=== PATIENT | male | born 1980 | race Caucasian/White ===

== ENCOUNTER 2018-12-14 07:39 | Inpatient (IN) | payer OTHER ==
--- NOTE | 2018-12-14 08:15 | PDOC ---
History of Present Illness - General Chief Complaint: Chest Pain Stated Complaint: HIGH BP Time Seen by Provider: 12/14/18 08:13 - History of Present Illness Initial Comments: 37yo M with PMH of HTN, DM, 15 pack-year smoker presenting with chest pain. Patient states he had this pain starting around 2am, described as "heaviness" and rated 7/10. The pain radiates to his left arm. Endorses diaphoresis, but no nausea or vomiting. His father of a heart attack at age 58. The pain worsens when he lays flat, and nothing makes it better. He currently endorses a "burning" on the left side of his chest that travels up and down. Patient has had this pain before, about three or four months ago when he was in [place]. Patient was evaluated by a animal keeper head there with a stress test and was recommended for what sounds like a catheterization, however patient opted to wait to get evaluated when he returned to the [place]. Patient does not have an established primary care physician or animal keeper head here. No hemoptysis, no recent surgical history, no recent immobilization, no hormone use, no history of DVT or PE. He also notes a high blood pressure reading at home that was "110/ 160." Denies fevers, chills, or abdominal pain. PCP: none (though his PCP is lasted as Dr. Oren Jhaveri, patient does not recognize the name and has not seen a doctor in the [place] in years) Cardio: none Past History - Past Medical History Allergies/Adverse Reactions: Allergies Allergy/AdvReac Type Severity Reaction Status Date / Time No Known Allergies Allergy Verified 12/14/18 07:43 Home Medications: Ambulatory Orders Nebivolol HCl [Bystolic] 10 mg PO DAILY 12/14/18 Pitavastatin Calcium [Livalo] 2 mg PO DAILY 12/14/18 COPD: No Diabetes: Yes HTN: Yes - Surgical History GI Surgery: No - Immunization History Immunization Up to Date: No - Suicide/Smoking/Psychosocial Hx Smoking History: Current every day smoker Have you smoked in the past 12 months: Yes Number of Cigarettes Smoked Daily: 12 Information on smoking cessation initiated: No Hx Alcohol Use: No Drug/Substance Use Hx: No Review of Systems - Review of Systems Comments:: Constitutional: no fever, +diaphoresis HEENT: no throat pain, no dysphagia Cardiovascular: +chest pain, no palpitations Respiratory: no cough, no shortness of breath Gastrointestinal: no abdominal pain, no nausea Genitourinary: no dysuria, no frequency Musculoskeletal: no myalgia, no arthralgia Skin: no rash, no itching Neurologic: no headache, +weakness *Physical Exam - Vital Signs Last Vital Signs Temp Pulse Resp BP Pulse Ox 97.8 F 74 18 134/89 98 12/14/18 07:41 12/14/18 07:41 12/14/18 07:41 12/14/18 07:41 12/14/18 07:41 - Physical Exam Comments: General: Awake, alert, and fully oriented, in no acute distress Head: No signs of trauma Eyes: EOMI, sclera anicteric ENT: Moist mucus membranes Neck: Normal ROM, supple Lungs: Lungs clear, Normal breath sounds Cardio: Regular rhythm, S1 and S2 present Abdomen: Soft, nontender. No guarding, no rebound, no masses Extremities: Normal range of motion, Distal pulses present SKIN: Warm, Dry, normal turgor Neurologic: Cranial nerves II through XII grossly intact. Normal speech ED Treatment Course - LABORATORY CBC & Chemistry Diagram: 12/14/18 08:55 12/14/18 16:59 Medical Decision Making - Medical Decision Making 37yo M with PMH of HTN, DM presenting with chest pain. DDX including but not limited to ACS, Aortic dissection, Pericarditis, PE, PNA, MSK Cardiac workup 324mg ASA EKG: rate 66, QTc 408, NSR, flattened t/ twi in leads II, III, avF (no prior ekgs in chart) 12/14/18 08:46 HEART score is at least 4 given risk factors (smoker, HTN, DM, family history), abnormal EKG, and history (moderately suspicious) CXR without acute pathology, my impression Awaiting Tpn and other labs Likely Telemetry obs admission for r/o ACS 12/14/18 09:26 CBC WBC 7.9 K/mm3 (4.0-10.0) 12/14/18 08:55 RBC 4.92 M/mm3 (4.00-5.60) 12/14/18 08:55 Hgb 15.3 GM/dL (11.7-16.9) 12/14/18 08:55 Hct 44.2 % (35.4-49) 12/14/18 08:55 MCV 89.9 fl (80-96) 12/14/18 08:55 MCH 31.0 pg (25.7-33.7) 12/14/18 08:55 MCHC 34.5 g/dl (32.0-35.9) 12/14/18 08:55 RDW 13.3 % (11.9-15.9) 12/14/18 08:55 Plt Count 197 K/MM3 (134-434) 12/14/18 08:55 MPV 8.2 fl (7.5-11.1) 12/14/18 08:55 Absolute Neuts (auto) 3.6 K/mm3 (1.5-8.0) 12/14/18 08:55 Neutrophils % 45.7 % (42.8-82.8) 12/14/18 08:55 Lymphocytes % 42.1 % (8-40) H 12/14/18 08:55 Monocytes % 8.4 % (3.8-10.2) 12/14/18 08:55 Eosinophils % 3.3 % (0-4.5) 12/14/18 08:55 Basophils % 0.5 % (0-2.0) 12/14/18 08:55 Nucleated RBC % 0 % (0-0) 12/14/18 08:55 No anemia or leukocytosis 12/14/18 09:41 CMP Sodium 135 mmol/L (136-145) L 12/14/18 08:55 Potassium 4.4 mmol/L (3.5-5.1) 12/14/18 08:55 Chloride 104 mmol/L (98-107) 12/14/18 08:55 Carbon Dioxide 25 mmol/L (21-32) 12/14/18 08:55 Anion Gap 5 MMOL/L (8-16) L 12/14/18 08:55 BUN 13 mg/dL (7-18) 12/14/18 08:55 Creatinine 0.7 mg/dL (0.55-1.3) 12/14/18 08:55 Creat Clearance w eGFR 126.90 (>60) 12/14/18 08:55 Random Glucose 169 mg/dL (74-106) H 12/14/18 08:55 Calcium 8.9 mg/dL (8.5-10.1) 12/14/18 08:55 Total Bilirubin 0.4 mg/dL (0.2-1) 12/14/18 08:55 AST 18 U/L (15-37) 12/14/18 08:55 ALT 37 U/L (13-61) 12/14/18 08:55 Alkaline Phosphatase 77 U/L (45-117) 12/14/18 08:55 Creatine Kinase 70 U/L (26-308) 12/14/18 08:55 Troponin I < 0.02 ng/ml (0.00-0.05) 12/14/18 08:55 Total Protein 7.9 g/dl (6.4-8.2) 12/14/18 08:55 Albumin 3.9 g/dl (3.4-5.0) 12/14/18 08:55 Tpn <0.02 undetectable Electrolytes unremarkable Patient reports some alleviation of chest pain after receiving sublingual nitro , now rated 3/10 Hospitalist team paged 12/14/18 10:57 Dr. Freitas requested consultation with cardiology to determine whether patient would be better served at a center with a cardiac cath. Dr. Vincent discussed case with cardio who recommended tele observation as patient has no cardiac stress testing/ECHO in this country. Dr. Freitas made aware Admission order placed *DC/Admit/Observation/Transfer Diagnosis at time of Disposition: Chest pain Qualifiers: Chest pain type: unspecified Qualified Code(s): R07.9 - Chest pain, unspecified - Discharge Dispostion Condition at time of disposition: Guarded Decision to Admit order: Yes - Referrals - Patient Instructions - Post Discharge Activity
[2018-12-14] MEDS ORDERED: ASPIRIN 81 MG CHEWABLE TABLETS PO ONE (08:42)
[2018-12-14] MEDS ORDERED: ASPIRIN 325 MG TABLET ONE (08:45)
[2018-12-14] MEDS ORDERED: NITROGLYCERIN SUBLINGUAL 1/200 0.3 MG BTL SL ONE (09:14)
[2018-12-14 09:19] LABS: BASO % 0.5 % (0-2.0); EOS % 3.3 % (0-4.5); HEMATOCRIT 44.2 % (35.4-49); HEMOGLOBIN 15.3 GM/dL (11.7-16.9); LYMPH % 42.1 % (8-40); MCHC 34.5 g/dl (32.0-35.9); MEAN CELL VOLUME 89.9 fl (80-96); MEAN PLT VOLUME 8.2 fl (7.5-11.1); MONO % 8.4 % (3.8-10.2); NEUT % 45.7 % (42.8-82.8); PLATELET COUNT 197 K/MM3 (134-434); RBC 4.92 M/mm3 (4.00-5.60); RDW 13.3 % (11.9-15.9); WHITE BLOOD COUNT 7.9 K/mm3 (4.0-10.0)
[2018-12-14] MEDS ORDERED: NITROGLYCERIN SUBLINGUAL 1/150 0.4 MG TAB ONE (09:23)
[2018-12-14 09:33] LABS: INR 1.04 (0.83-1.09); PROTHROMBIN TIME (PATIENT) 12.3 SEC (9.7-13.0)
[2018-12-14 09:36] LABS: ACTIVATED PTT 31.7 SECONDS (25.2-36.5)
--- NOTE | 2018-12-14 10:16 | PDOC ---
Attending Attestation - Resident Resident Name: Belen Martinez - ED Attending Attestation I have performed the following: I have examined & evaluated the patient, The case was reviewed & discussed with the resident, I agree w/resident's findings & plan - HPI HPI: 12/14/18 10:11 37-year-old male with history of hypertension, high cholesterol, smoking history , reportedly known CAD on stress test performed in his home country about 9 months ago (referred for catheterization at that time but wanted to follow-up in the [place]) presents now for first episode of chest pain since that stress test 9 months ago. Patient was resting at home last night, developed left chest/shoulder discomfort with nausea and diaphoresis, mild throughout the night and awoke this morning with increased pain today presents for evaluation. At baseline, patient has no exercise limitations and denies any exertional chest pain or dyspnea. - Physicial Exam PE: 12/14/18 10:12 Vital signs are within normal limits Patient seated comfortably in stretcher, diaphoretic upon arrival, EKG showed no acute ischemia patient was given nitroglycerin with improved symptoms Heart is regular without murmur, lungs are clear No extremity edema or calf tenderness - Medical Decision Making 12/14/18 10:13 37-year-old male with hypertension, diabetes, smoking history, positive family history and reportedly known CAD from stress test last year presents now with chest pain concerning for an unstable angina. Labs, EKG, chest x-ray asa, ntg tele admit 12/14/18 11:45 labs wnl case d/w Dr. Jain of cardiology, agrees with tele admit Accepted for inpt tele by Dr. Ramos Heart Score/ECG Review - History History: Highly suspicious - Electrocardiogram EKG: Non specific repolarization disturbance - Age Age: </= 45 - Risk Factors Risk Factors Heart Score: Yes Hx Hypertension, Yes Hx Diabetes, Yes Smoking History, Yes Positive family hx of cardiac disease Based on the list above the patient has:: >/=3 risk factors or Hx atherosclerotic disease - Troponin Troponin: </= normal limit - Score Heart Score - Total: 5 #1 ECG reviewed & interpreted by me at: 07:41 General ECG Interpretation: Sinus Rhythm, Normal Rate (66), Normal Intervals ( qtc 408), No acute ischemic changes (inf flat T, septal Q V1V2)
[2018-12-14 10:28] LABS: ALBUMIN 3.9 g/dl (3.4-5.0); ALK PHOS 77 U/L (45-117); ANION GAP 5 MMOL/L (8-16); BILIRUBIN,TOTAL 0.4 mg/dL (0.2-1); BLOOD UREA NITROGEN 13 mg/dL (7-18); CALCIUM 8.9 mg/dL (8.5-10.1); CHLORIDE 104 mmol/L (98-107); CO2 25 mmol/L (21-32); CREATININE 0.7 mg/dL (0.55-1.3); GLUCOSE,RANDOM 169 mg/dL (74-106); POTASSIUM 4.4 mmol/L (3.5-5.1); SGOT/AST 18 U/L (15-37); SGPT/ALT 37 U/L (13-61); SODIUM 135 mmol/L (136-145); TOT PROT 7.9 g/dl (6.4-8.2)
--- NOTE | 2018-12-14 12:26 | EKG ---
Test Reason : Blood Pressure : / mmHG Vent. Rate : 066 BPM Atrial Rate : 066 BPM P-R Int : 174 ms QRS Dur : 092 ms QT Int : 390 ms P-R-T Axes : -08 001 -04 degrees QTc Int : 408 ms NORMAL SINUS RHYTHM SEPTAL INFARCT , AGE UNDETERMINED ABNORMAL ECG Confirmed by MD NAHUN, CARMEN ([id number]) on 12/14/2018 12:25:55 PM Referred By: Confirmed By:CARMEN GARNICA MD
--- NOTE | 2018-12-14 12:46 | HP ---
CHIEF COMPLAINT: chest pain PCP: None HISTORY OF PRESENT ILLNESS: The patient is a 37 year old male with a PMH of DMII, hypertension who presented complaining of chest pain that started last night around 2 AM. The pain started suddenly, awoke him from sleep, 10/10, located on left side of the chest, radiated to the neck and associated with numbness of left upper extremity , pressure like. The patient states that the pain lasted for few hours. The patient had relieve of his symptoms after he was given NTG in emergency room. The patient had positive stress test 9 months ago in [place] but decided not to undergo further treatment at that time. The patient reports weakness for the past 2-3 weeks that got worse in the past 3 days. He denies palpitations, SOB, dizziness. He is compliant with his medications but doesn't have PCP in [place]. ER course was notable for: (1)EKG (2)troponin neg (3)Cardiology consultation PAST MEDICAL HISTORY: as above PAST SURGICAL HISTORY: none Social History: Smoking:yes, current smoker, 1 pack a day for 15 years Alcohol:occasionally Drugs: no Family History: Father due to PA at age 59 many family members on father's side with heart disease Mother: DM Allergies No Known Allergies Allergy (Verified 12/14/18 07:43) HOME MEDICATIONS: Home Medications Medication Instructions Recorded Nebivolol HCl [Bystolic] 10 mg PO DAILY 12/14/18 Pitavastatin Calcium [Livalo] 2 mg PO DAILY 12/14/18 REVIEW OF SYSTEMS CONSTITUTIONAL: Absent: fever, chills, diaphoresis, generalized weakness, malaise, loss of appetite, weight change HEENT: Absent: rhinorrhea, nasal congestion, throat pain, throat swelling, difficulty swallowing, visual changes CARDIOVASCULAR: chest pain, Absent: syncope, palpitations, irregular heart rate, lightheadedness, peripheral edema RESPIRATORY: Absent: cough, shortness of breath, dyspnea with exertion, orthopnea, wheezing, stridor, hemoptysis GASTROINTESTINAL: Absent: abdominal pain, nausea, vomiting, diarrhea, constipation, melena, hematochezia GENITOURINARY: Absent: dysuria, frequency, urgency, hesitancy, hematuria, flank pain, genital pain MUSCULOSKELETAL: neck pain Absent: myalgia, arthralgia, joint swelling, back pain HEMATOLOGIC/IMMUNOLOGIC: Absent: easy bleeding, easy bruising ENDOCRINE: Absent: unexplained weight gain, unexplained weight loss, heat intolerance, cold intolerance NEUROLOGIC: Absent: headache, focal weakness or paresthesias, dizziness, unsteady gait, seizure PSYCHIATRIC: Absent: anxiety, depression PHYSICAL EXAMINATION Vital Signs - 24 hr 12/14/18 12/14/18 12/14/18 07:41 08:15 09:24 Temperature 97.8 F Pulse Rate 74 Pulse Rate [ 65 Apical] Respiratory 18 16 Rate Blood Pressure 134/89 Blood Pressure 135/89 [Left Arm] O2 Sat by Pulse 98 99 99 Oximetry (%) 12/14/18 09:52 Temperature Pulse Rate Pulse Rate [ 71 Apical] Respiratory 16 Rate Blood Pressure Blood Pressure 111/79 [Left Arm] O2 Sat by Pulse 71 L Oximetry (%) GENERAL: Awake, alert, and fully oriented, in no acute distress. HEAD: Normal with no signs of trauma. EYES: Extraocular movements intact, sclera anicteric, conjunctiva clear. EARS, NOSE, THROAT: Oropharynx clear without exudates. Moist mucous membranes. NECK: Normal range of motion, supple without lymphadenopathy, JVD, or masses. LUNGS: Breath sounds equal, clear to auscultation bilaterally. No wheezes, and no crackles. No accessory muscle use. HEART: Regular rate and rhythm, normal S1 and S2 without murmur, rub or gallop. ABDOMEN: Obese, soft, nontender, normoactive bowel sounds, no guarding, no rebound, no masses. MUSCULOSKELETAL: Normal range of motion at all joints. No bony deformities or tenderness. UPPER EXTREMITIES: No peripheral edema. LOWER EXTREMITIES: 2+ pulses, no peripheral edema. NEUROLOGICAL: Non focal. Normal speech. Normal gait. PSYCHIATRIC: Cooperative. Good eye contact. Appropriate mood and affect. SKIN: Warm, dry, normal turgor, no rashes or lesions. Laboratory Results - last 24 hr 12/14/18 12/14/18 12/14/18 08:55 08:55 08:55 WBC 7.9 RBC 4.92 Hgb 15.3 Hct 44.2 MCV 89.9 MCH 31.0 MCHC 34.5 RDW 13.3 Plt Count 197 MPV 8.2 Absolute Neuts (auto) 3.6 Neutrophils % 45.7 Lymphocytes % 42.1 H Monocytes % 8.4 Eosinophils % 3.3 Basophils % 0.5 Nucleated RBC % 0 PT with INR 12.30 INR 1.04 PTT (Actin FS) 31.7 Sodium 135 L Potassium 4.4 Chloride 104 Carbon Dioxide 25 Anion Gap 5 L BUN 13 Creatinine 0.7 Creat Clearance w eGFR 126.90 Random Glucose 169 H Calcium 8.9 Total Bilirubin 0.4 AST 18 ALT 37 Alkaline Phosphatase 77 Creatine Kinase 70 Troponin I < 0.02 Total Protein 7.9 Albumin 3.9 ASSESSMENT/PLAN: The patient is a 37 year old male with a PMH of DMII, hypertension who presented complaining of chest pain, admitted to r/o ACS. r/o ACS: -the patient presented with typical chest pain, HEART score 4, -no acute EKG changes, NSR, no magdalene/std and normal troponin -consulted Cardiology, will follow up recommendations -f/u troponin at 15 and 21:00, f/u EKG this afternoon -cont Bystolic and Lipitor, no AC recommended by Cardiology -NTG sl as needed -f/u ECHO -tomorrow for stress test Neck pain: -the patient is still complaining of neck pain and numbness in upper extremities -will f/u x ray DM: -ISS ACHS -BGM ACS -Hg A1c ordered -hold home medication HTN: -cont Bystolic PO -monitor Nicotine dependance: -nicotine gum, counseling F/E/N: no/no changes/MPO Disposition: telemetry monitoring, stress test tomorrow Problem List - Problem (1) Chest pain Code(s): R07.9 - CHEST PAIN, UNSPECIFIED (2) Hypertension Code(s): I10 - ESSENTIAL (PRIMARY) HYPERTENSION (3) Diabetes Code(s): E11.9 - TYPE 2 DIABETES MELLITUS WITHOUT COMPLICATIONS Visit type - Emergency Visit Emergency Visit: Yes ED Registration Date: 12/14/18 Care time: The patient presented to the Emergency Department on the above date and was hospitalized for further evaluation of their emergent condition. - New Patient This patient is new to me today: Yes Date on this admission: 12/14/18 - Critical Care Critical Care patient: No
[2018-12-14 14:42] LABS: N-TERMINAL BNP 19.4 pg/ml (5-125)
--- NOTE | 2018-12-14 15:07 | CON.CARD ---
Cardiology Consult (text) - Consultation Consultation Note: cc: cp hpi: 37 m hx htn, hld, dm, smoking, here with cp. Woke up early this morning and had left chest tightness with left arm numbness. Mild sob as well. No dizzy, loc, pnd, orthopnea, le edema. Came to ER and got sl nitro and sxs resolved an hour later. Feels well now. Had similar episode [place] and reports having abnl stress test there but chose not to have cath then. pmh: per hpi psh: no surgery social: +tob fam: dad mi 58 ros: per hpi; all others normal meds: Home Medications Medication Instructions Recorded Nebivolol HCl [Bystolic] 10 mg PO DAILY 12/14/18 Pitavastatin Calcium [Livalo] 2 mg PO DAILY 12/14/18 pe: Vital Signs (72 hours) 12/14/18 12/14/18 12/14/18 07:41 08:15 09:24 Temperature 97.8 F Pulse Rate 74 Pulse Rate [ 65 Apical] Respiratory 18 16 Rate Blood Pressure 134/89 Blood Pressure 135/89 [Left Arm] O2 Sat by Pulse 98 99 99 Oximetry (%) 12/14/18 09:52 Temperature Pulse Rate Pulse Rate [ 71 Apical] Respiratory 16 Rate Blood Pressure Blood Pressure 111/79 [Left Arm] O2 Sat by Pulse 71 L Oximetry (%) nad no jvd rrr s1s2 no mrg cta bl nl eff aao3 no le e/c/c abd nt nd pos bs no jaundice diaphoresis pos dp pt no carotid bruits Laboratory Last Values WBC 7.9 K/mm3 (4.0-10.0) 12/14/18 08:55 RBC 4.92 M/mm3 (4.00-5.60) 12/14/18 08:55 Hgb 15.3 GM/dL (11.7-16.9) 12/14/18 08:55 Hct 44.2 % (35.4-49) 12/14/18 08:55 MCV 89.9 fl (80-96) 12/14/18 08:55 MCH 31.0 pg (25.7-33.7) 12/14/18 08:55 MCHC 34.5 g/dl (32.0-35.9) 12/14/18 08:55 RDW 13.3 % (11.9-15.9) 12/14/18 08:55 Plt Count 197 K/MM3 (134-434) 12/14/18 08:55 MPV 8.2 fl (7.5-11.1) 12/14/18 08:55 Absolute Neuts (auto) 3.6 K/mm3 (1.5-8.0) 12/14/18 08:55 Neutrophils % 45.7 % (42.8-82.8) 12/14/18 08:55 Lymphocytes % 42.1 % (8-40) H 12/14/18 08:55 Monocytes % 8.4 % (3.8-10.2) 12/14/18 08:55 Eosinophils % 3.3 % (0-4.5) 12/14/18 08:55 Basophils % 0.5 % (0-2.0) 12/14/18 08:55 Nucleated RBC % 0 % (0-0) 12/14/18 08:55 PT with INR 12.30 SEC (9.7-13.0) 12/14/18 08:55 INR 1.04 (0.83-1.09) 12/14/18 08:55 PTT (Actin FS) 31.7 SECONDS (25.2-36.5) 12/14/18 08:55 Sodium 135 mmol/L (136-145) L 12/14/18 08:55 Potassium 4.4 mmol/L (3.5-5.1) 12/14/18 08:55 Chloride 104 mmol/L (98-107) 12/14/18 08:55 Carbon Dioxide 25 mmol/L (21-32) 12/14/18 08:55 Anion Gap 5 MMOL/L (8-16) L 12/14/18 08:55 BUN 13 mg/dL (7-18) 12/14/18 08:55 Creatinine 0.7 mg/dL (0.55-1.3) 12/14/18 08:55 Creat Clearance w eGFR 126.90 (>60) 12/14/18 08:55 Random Glucose 169 mg/dL (74-106) H 12/14/18 08:55 Calcium 8.9 mg/dL (8.5-10.1) 12/14/18 08:55 Total Bilirubin 0.4 mg/dL (0.2-1) 12/14/18 08:55 AST 18 U/L (15-37) 12/14/18 08:55 ALT 37 U/L (13-61) 12/14/18 08:55 Alkaline Phosphatase 77 U/L (45-117) 12/14/18 08:55 Creatine Kinase 70 U/L (26-308) 12/14/18 08:55 Troponin I < 0.02 ng/ml (0.00-0.05) 12/14/18 08:55 B-Natriuretic Peptide 19.4 pg/ml (5-125) 12/14/18 08:55 Total Protein 7.9 g/dl (6.4-8.2) 12/14/18 08:55 Albumin 3.9 g/dl (3.4-5.0) 12/14/18 08:55 ecg: sr nl intervals no ischemic changes cxr: clear lungs a/p: 37 m hx htn, hld, dm, smoking, here with cp. cp: -some typical features and pt has cad risk factors -ecg unremarkable and first set enzymes wnl. no further cp at this time. -would continue to [place], monitor on tele. will check echo and nuclear stress test tomorrow if CE's remain normal. -cont asa htn: -cont home bystolic hld: -cont home statin tob use: -smoking cessation discussed
[2018-12-14] MEDS ORDERED: NITROGLYCERIN SUBLINGUAL 1/150 0.4 MG TAB SL PRN (15:18)
[2018-12-14] MEDS ORDERED: MORPHINE SULFATE 2 MG/ML VIAL IVPUSH PRN (15:44)
--- NOTE | 2018-12-14 16:00 | PN ---
Teaching Attending Note Name of Resident: Sigrid Walters ATTENDING PHYSICIAN STATEMENT I saw and evaluated the patient. I reviewed the resident's note and discussed the case with the resident. I agree with the resident's findings and plan as documented. SUBJECTIVE: Left sided chest pain OBJECTIVE: Vital Signs Temperature 97.8 F 12/14/18 07:41 Pulse Rate 71 12/14/18 09:52 Respiratory Rate 16 12/14/18 09:52 Blood Pressure 111/79 12/14/18 09:52 O2 Sat by Pulse Oximetry (%) 71 L 12/14/18 09:52 Young man not in distress, chest pain almost resolved HEENT: Mm moist, no anemia, PERRLA EOMI NECK: No JVd No Bruit CHEST: CTA B/L CVS: S1S2 R no m/g/r ABD: No distention, non tender Bs + EXT: No edema feet, no calf tenderness, RADIO ADJUSTER' AOX3 non focal LABS: CBC, BMP 12/14/18 08:55 12/14/18 08:55 EKG: NSR at 66/mt R no acute ST T changes ASSESSMENT AND PLAN: 37 yrs old man H/O HTN, T2DM, , unlimited Et present with Left sided pressure like pain with perspiration and radiation to Left UE and back lasted 4-5 hrs, developed while sleeping 8/10 with SOB , pain gradually decrease in intensity came to Ed for evaluation received NTG symptoms improved after S/L NTG, at the tme of examination c/o some minimal discomfort and head ache, hemodynamically stable, EKG no acute ST T changes Ist CE -ve, as per patient previously + NST 9 months ago in [place] and he was advised cardiac cath CHEST Pain: Typical chest pain with multiple CAD risk factors, T2DM, HTN, smoking FHO Premature CAD (father at the age of 59 with GA) admitted for evaluation of chest pain, Card Tele, ASA 81 mg Lipitor 40 mg daily serial CE, ECHO, optimize BP control , F/U cardiology input Card recommended Stress test in am if serial CE are normal and patient stays CP free, HTN: Resume home meds or equivalent T2DM: F/U Lipid panel , TSH, HBA1C , Correction dose insulin. SMOKING Cessation: Educate to stop smoking offerred Nicotine GUM .>
[2018-12-14] MEDS ORDERED: NICOTINE POLACRILEX 2 MG GUM BUC PRN (16:49)
[2018-12-14 17:55] LABS: GLUCOSE,RANDOM 283 mg/dL (74-106)
[2018-12-14] MEDS: INSULIN SLIDING SCALE (NOVOLOG) 1 VIAL SQ SCH ×2 (18:48→21:43)
[2018-12-14] MEDS ORDERED: INSULIN (NOVOLOG) ASPART 100 UNITS/ML 10ML VIAL ONE (18:52)
[2018-12-14] MEDS: ATORVASTATIN CA 40 MG TABLET (FP) PO SCH (21:40)
[2018-12-14] MEDS: HEPARIN NA (PORCINE) 5,000 UNITS/ML 1ML VIAL SQ SCH (21:42)
[2018-12-14 23:33] VITALS: BMI 36.8
[2018-12-15 06:45] LABS: ALBUMIN 3.7 g/dl (3.4-5.0); ALK PHOS 95 U/L (45-117); ANION GAP 6 MMOL/L (8-16); BILIRUBIN,TOTAL 0.2 mg/dL (0.2-1); BLOOD UREA NITROGEN 15 mg/dL (7-18); CALCIUM 8.8 mg/dL (8.5-10.1); CHLORIDE 102 mmol/L (98-107); CHOLESTEROL 170 mg/dL (50-200); CO2 27 mmol/L (21-32); CREATININE 0.6 mg/dL (0.55-1.3); GLUCOSE,RANDOM 206 mg/dL (74-106); HDL CHOLESTEROL 19 mg/dL (40-60); MAGNESIUM 2.1 mg/dL (1.8-2.4); PHOSPHOROUS 3.5 mg/dL (2.5-4.9); SGOT/AST 21 U/L (15-37); SGPT/ALT 42 U/L (13-61); SODIUM 136 mmol/L (136-145); TOT PROT 7.3 g/dl (6.4-8.2); TRIGLYCERIDES 656 mg/dL (0-150)
[2018-12-15] MEDS: HEPARIN NA (PORCINE) 5,000 UNITS/ML 1ML VIAL SQ SCH ×3 (07:01→22:11)
[2018-12-15] MEDS: INSULIN SLIDING SCALE (NOVOLOG) 1 VIAL SQ SCH ×4 (07:01→22:11)
[2018-12-15 07:06] LABS: BASO % 0.8 % (0-2.0); EOS % 3.4 % (0-4.5); HEMATOCRIT 42.7 % (35.4-49); HEMOGLOBIN 14.7 GM/dL (11.7-16.9); LYMPH % 49.8 % (8-40); MCH 31.2 pg (25.7-33.7); MCHC 34.5 g/dl (32.0-35.9); MEAN CELL VOLUME 90.4 fl (80-96); MEAN PLT VOLUME 8.8 fl (7.5-11.1); MONO % 7.7 % (3.8-10.2); NEUT % 38.3 % (42.8-82.8); PLATELET COUNT 186 K/MM3 (134-434); RBC 4.72 M/mm3 (4.00-5.60); WHITE BLOOD COUNT 8.1 K/mm3 (4.0-10.0)
[2018-12-15 07:09] LABS: INR 1.01 (0.83-1.09); PROTHROMBIN TIME (PATIENT) 11.9 SEC (9.7-13.0)
[2018-12-15 07:10] LABS: ACTIVATED PTT 34.3 SECONDS (25.2-36.5)
[2018-12-15] MEDS ORDERED: FLU VACCINE QUAD 60 MCG/0.5 ML (MDV 18-19) IM ONE (10:00)
[2018-12-15] MEDS ORDERED: REGADENOSON 0.4 MG/5 ML PRE-FILLED SYRINGE IVPUSH ONE ×2 (10:15→11:36)
[2018-12-15] MEDS: NEBIVOLOL 10 MG TABLET (FP) PO SCH ×2 (10:18→13:23)
[2018-12-15] MEDS: ASPIRIN 81 MG CHEWABLE TABLETS PO SCH ×2 (10:18→13:23)
--- NOTE | 2018-12-15 11:26 | ECHO ---
Name: KORIN LANGLEY Exam:Adult Echocardiogram Study Date: 12/15/2018 09:19 AM Age: 37 yrs Reason For Study: Chest pain Height: 66 in Weight: 220 lb BSA: 2.1 m2 MMode/2D Measurements & Calculations IVSd: 1.1 cm Ao root diam: 3.0 cm LVIDd: 4.4 cm LA dimension: 3.4 cm LVIDs: 3.0 cm LVPWd: 1.00 cm EDV(Teich): 89.3 ml LVOT diam: 2.0 cm ESV(Teich): 33.6 ml Doppler Measurements & Calculations MV E max wong: 62.2 cm/sec Ao V2 max: 118.8 cm/sec MV A max wong: 53.8 cm/sec Ao max P.6 mmHg MV E/A: 1.2 Ao V2 mean: 79.2 cm/sec Ao mean P.8 mmHg Ao V2 VTI: 24.0 cm Med Peak E' Wong: 8.2 cm/sec Med E/e': 7.6 Lat Peak E' Wong: 11.1 cm/sec Lat E/e': 5.6 Procedure A two-dimensional transthoracic echocardiogram with color flow and Doppler was performed. Left Ventricle The left ventricular size, thickness and function are normal. The left ventricular ejection fraction is normal. The left ventricular wall motion is normal. Right Ventricle The right ventricle is normal in size and function. Atria Normal left and right atrial size and function. Mitral Valve There is mild mitral valve thickening. There is no mitral valve stenosis. There is trace mitral regur gitation. Tricuspid Valve The tricuspid valve is not well visualized, but is grossly normal. There is no tricuspid stenosis. Th ere was insufficient TR detected to calculate RV systolic pressure. Aortic Valve The aortic valve is normal in structure and function. No hemodynamically significant valvular aortic stenosis. No aortic regurgitation is present. Pulmonic Valve The pulmonic valve is not well visualized. Great Vessels The aortic root is normal size. Pericardium/Pleura There is no pericardial effusion. Interpretation Summary The left ventricular size, thickness and function are normal The left ventricular ejection fraction is normal. The left ventricular wall motion is normal. There is trace mitral regurgitation. There was insufficient TR detected to calculate RV systolic pressure. MD Yakov Diego 12/15/2018 11:25 AM
--- NOTE | 2018-12-15 14:37 | PN ---
Progress Note, Physician - Current Medication List Current Medications: Active Medications Aspirin (Asa -) 81 mg PO DAILY [facility] Last Admin: 12/15/18 13:23 Dose: 81 mg Atorvastatin Calcium (Lipitor -) 40 mg PO HS [facility] Last Admin: 12/14/18 21:40 Dose: 40 mg Heparin Sodium (Porcine) (Heparin -) 5,000 unit SQ TID [facility] Last Admin: 12/15/18 13:24 Dose: Not Given Insulin Aspart (Novolog Vial Sliding Scale -) 1 vial SQ ACHS [facility]; Protocol Last Admin: 12/15/18 11:42 Dose: Not Given Morphine Sulfate (Morphine Sulfate) 2 mg IVPUSH Q6H PRN PRN Reason: PAIN LEVEL 4 - 6 Nebivolol (Bystolic -) 10 mg PO DAILY [facility] Last Admin: 12/15/18 13:23 Dose: 10 mg Nicotine Polacrilex (Nicorette Gum -) 2 mg BUC Q2H PRN PRN Reason: NICOTINE REPLACEMENT RX Nitroglycerin (Nitrostat -) 0.4 mg SL ONCE PRN PRN Reason: chest pain - Objective Vital Signs: Vital Signs Temperature 98.1 F 12/15/18 08:28 Pulse Rate 62 12/15/18 08:28 Respiratory Rate 18 12/15/18 08:28 Blood Pressure 106/62 12/15/18 08:28 O2 Sat by Pulse Oximetry (%) 98 12/15/18 08:26 Labs: CBC, BMP 12/15/18 05:30 12/15/18 05:30 INR, PTT INR 1.01 (0.83-1.09) 12/15/18 05:30 Assessment/Plan IMP: 1. Multiple cardiac risk factors 2. Chest pain syndrome: mixed features REC: 1. Cont ASA/statin/beta valorie, BP controlled 2. Smoking cessation 3. F/u nuclear stress test results. Further reccs pending results. Cont tele.
--- NOTE | 2018-12-15 15:10 | EKG ---
Test Reason : Blood Pressure : / mmHG Vent. Rate : 067 BPM Atrial Rate : 067 BPM P-R Int : 162 ms QRS Dur : 090 ms QT Int : 386 ms P-R-T Axes : -04 004 -03 degrees QTc Int : 407 ms NORMAL SINUS RHYTHM NORMAL ECG WHEN COMPARED WITH ECG OF 14-DEC-2018 07:41, CRITERIA FOR SEPTAL INFARCT ARE NO LONGER PRESENT Confirmed by MYESHA CHEN, MARGOTH ([id number]) on 12/15/2018 3:09:57 PM Referred By: Felicitas MALDONADO Confirmed By:MARGOTH BRUNNER MD
[2018-12-15] MEDS ORDERED: ACETAMINOPHEN 325 MG TABLET (FP) PO PRN (16:22)
--- NOTE | 2018-12-15 16:26 | PN ---
Teaching Attending Note Name of Resident: Sigrid Walters ATTENDING PHYSICIAN STATEMENT I saw and evaluated the patient. I reviewed the resident's note and discussed the case with the resident. I agree with the resident's findings and plan as documented with exceptions below. SUBJECTIVE: Patient seen and examined. No current chest pain. OBJECTIVE: Vital Signs Period Temp Pulse Resp BP Sys/Ronquillo Pulse Ox Last 24 Hr 97.7 F-98.3 F 62-78 18-20 106-140/62-73 98-98 Intake & Output 12/12/18 12/13/18 12/14/18 12/15/18 23:59 23:59 23:59 23:59 Intake Total 200 Balance 200 Weight 228 lb 8 oz General: sitting in bed in no acute distress Chest: CTAB, no rales or wheezing Abdomen;Soft, NT, ND Extremities: no edema Home Medications Medication Instructions Recorded Nebivolol HCl [Bystolic] 10 mg PO DAILY 12/14/18 Pitavastatin Calcium [Livalo] 2 mg PO DAILY 12/14/18 Active Medications Acetaminophen (Tylenol -) 650 mg PO Q6H PRN PRN Reason: PAIN LEVEL 1-5 Aspirin (Asa -) 81 mg PO DAILY [facility] Last Admin: 12/15/18 13:23 Dose: 81 mg Atorvastatin Calcium (Lipitor -) 40 mg PO HS [facility] Last Admin: 12/14/18 21:40 Dose: 40 mg Heparin Sodium (Porcine) (Heparin -) 5,000 unit SQ TID [facility] Last Admin: 12/15/18 13:24 Dose: Not Given Insulin Aspart (Novolog Vial Sliding Scale -) 1 vial SQ ACHS [facility]; Protocol Last Admin: 12/15/18 11:42 Dose: Not Given Nebivolol (Bystolic -) 10 mg PO DAILY [facility] Last Admin: 12/15/18 13:23 Dose: 10 mg Nicotine Polacrilex (Nicorette Gum -) 2 mg BUC Q2H PRN PRN Reason: NICOTINE REPLACEMENT RX Nitroglycerin (Nitrostat -) 0.4 mg SL ONCE PRN PRN Reason: chest pain Laboratory Results - last 24 hr 12/14/18 12/14/18 12/14/18 16:59 19:30 21:35 WBC RBC Hgb Hct MCV MCH MCHC RDW Plt Count MPV Absolute Neuts (auto) Neutrophils % Lymphocytes % Monocytes % Eosinophils % Basophils % Nucleated RBC % PT with INR INR PTT (Actin FS) Sodium Potassium Chloride Carbon Dioxide Anion Gap BUN Creatinine Creat Clearance w eGFR POC Glucometer 218 Random Glucose 283 H Hemoglobin A1c % Calcium Phosphorus Magnesium Total Bilirubin AST ALT Alkaline Phosphatase CK-MB (CK-2) < 1.0 Troponin I < 0.02 < 0.02 Total Protein Albumin Triglycerides Cholesterol Total LDL Cholesterol HDL Cholesterol TSH 12/15/18 12/15/18 12/15/18 05:30 05:30 05:30 WBC 8.1 RBC 4.72 Hgb 14.7 Hct 42.7 MCV 90.4 MCH 31.2 MCHC 34.5 RDW 13.0 Plt Count 186 MPV 8.8 Absolute Neuts (auto) 3.1 Neutrophils % 38.3 L Lymphocytes % 49.8 H Monocytes % 7.7 Eosinophils % 3.4 Basophils % 0.8 Nucleated RBC % 0 PT with INR 11.90 INR 1.01 PTT (Actin FS) 34.3 Sodium 136 Potassium 4.0 Chloride 102 Carbon Dioxide 27 Anion Gap 6 L BUN 15 Creatinine 0.6 Creat Clearance w eGFR 151.60 POC Glucometer Random Glucose 206 H Hemoglobin A1c % Calcium 8.8 Phosphorus 3.5 Magnesium 2.1 Total Bilirubin 0.2 AST 21 ALT 42 Alkaline Phosphatase 95 CK-MB (CK-2) Troponin I Total Protein 7.3 Albumin 3.7 Triglycerides 656 H Cholesterol 170 Total LDL Cholesterol 100 HDL Cholesterol 19 L TSH 1.37 12/15/18 12/15/18 05:30 06:59 WBC RBC Hgb Hct MCV MCH MCHC RDW Plt Count MPV Absolute Neuts (auto) Neutrophils % Lymphocytes % Monocytes % Eosinophils % Basophils % Nucleated RBC % PT with INR INR PTT (Actin FS) Sodium Potassium Chloride Carbon Dioxide Anion Gap BUN Creatinine Creat Clearance w eGFR POC Glucometer 201 Random Glucose Hemoglobin A1c % 7.6 H Calcium Phosphorus Magnesium Total Bilirubin AST ALT Alkaline Phosphatase CK-MB (CK-2) Troponin I Total Protein Albumin Triglycerides Cholesterol Total LDL Cholesterol HDL Cholesterol TSH 2Decho and stress test results reviewed ASSESSMENT AND PLAN: 37 yom with PMHx of HTN, NIDDM, nicotine dependence, recently reported positive stress test in [place] admitted with chest pain -Chest pain -HTN -NIDDM -Nicotine dependence Plan: ACS ruled out, no events on telemetry Positive stress test. Cardiology input noted. Plan for transfer for cardiac cath Continue ASA/statin/beta valorie. ISS, DIspo pending transfer to [facility]. Discussed with patient, patient seen with cardiology Dr. Gutierrez at bedside.
[2018-12-15] MEDS: NICOTINE 14 MG/24 HOURS TOPICAL PATCH TD SCH (17:45)
--- NOTE | 2018-12-15 17:53 | PN ---
Physical Exam: SUBJECTIVE: Patient seen and examined, feeling good. OBJECTIVE: Vital Signs Period Temp Pulse Resp BP Sys/Ronquillo Pulse Ox Last 24 Hr 97.7 F-98.3 F 62-78 18-20 106-140/62-73 98-98 GENERAL: The patient is awake, alert, and fully oriented, in no acute distress. HEAD: Normal with no signs of trauma. EYES: Extraocular movements intact, sclera anicteric, conjunctiva clear. ENT: Oropharynx clear without exudates, moist mucous membranes. NECK: Trachea midline, full range of motion, supple. LUNGS: Clear to auscultation bilaterally, no wheezes, no crackles, no accessory muscle use. HEART: Regular rate and rhythm, S1, S2 without murmur, rub or gallop. ABDOMEN: Obese, soft, nontender, nondistended, normoactive bowel sounds. EXTREMITIES: no edema. NEUROLOGICAL: Normal speech, gait not observed. PSYCH: Normal mood, normal affect. SKIN: Warm, dry, no rashes. Laboratory Results - last 24 hr 12/14/18 12/14/18 12/14/18 16:59 19:30 21:35 WBC RBC Hgb Hct MCV MCH MCHC RDW Plt Count MPV Absolute Neuts (auto) Neutrophils % Lymphocytes % Monocytes % Eosinophils % Basophils % Nucleated RBC % PT with INR INR PTT (Actin FS) Sodium Potassium Chloride Carbon Dioxide Anion Gap BUN Creatinine Creat Clearance w eGFR POC Glucometer 218 Random Glucose 283 H Hemoglobin A1c % Calcium Phosphorus Magnesium Total Bilirubin AST ALT Alkaline Phosphatase CK-MB (CK-2) < 1.0 Troponin I < 0.02 < 0.02 Total Protein Albumin Triglycerides Cholesterol Total LDL Cholesterol HDL Cholesterol TSH 12/15/18 12/15/18 12/15/18 05:30 05:30 05:30 WBC 8.1 RBC 4.72 Hgb 14.7 Hct 42.7 MCV 90.4 MCH 31.2 MCHC 34.5 RDW 13.0 Plt Count 186 MPV 8.8 Absolute Neuts (auto) 3.1 Neutrophils % 38.3 L Lymphocytes % 49.8 H Monocytes % 7.7 Eosinophils % 3.4 Basophils % 0.8 Nucleated RBC % 0 PT with INR 11.90 INR 1.01 PTT (Actin FS) 34.3 Sodium 136 Potassium 4.0 Chloride 102 Carbon Dioxide 27 Anion Gap 6 L BUN 15 Creatinine 0.6 Creat Clearance w eGFR 151.60 POC Glucometer Random Glucose 206 H Hemoglobin A1c % Calcium 8.8 Phosphorus 3.5 Magnesium 2.1 Total Bilirubin 0.2 AST 21 ALT 42 Alkaline Phosphatase 95 CK-MB (CK-2) Troponin I Total Protein 7.3 Albumin 3.7 Triglycerides 656 H Cholesterol 170 Total LDL Cholesterol 100 HDL Cholesterol 19 L TSH 1.37 12/15/18 12/15/18 12/15/18 05:30 06:59 17:39 WBC RBC Hgb Hct MCV MCH MCHC RDW Plt Count MPV Absolute Neuts (auto) Neutrophils % Lymphocytes % Monocytes % Eosinophils % Basophils % Nucleated RBC % PT with INR INR PTT (Actin FS) Sodium Potassium Chloride Carbon Dioxide Anion Gap BUN Creatinine Creat Clearance w eGFR POC Glucometer 201 277 Random Glucose Hemoglobin A1c % 7.6 H Calcium Phosphorus Magnesium Total Bilirubin AST ALT Alkaline Phosphatase CK-MB (CK-2) Troponin I Total Protein Albumin Triglycerides Cholesterol Total LDL Cholesterol HDL Cholesterol TSH Active Medications Generic Name Dose Route Start Last Admin Trade Name Freq PRN Reason Stop Dose Admin Acetaminophen 650 mg 12/15/18 16:22 Tylenol - PO Q6H PRN PAIN LEVEL 1-5 Aspirin 81 mg 12/15/18 10:00 12/15/18 13:23 Asa - PO 81 mg DAILY [facility] Administration Atorvastatin Calcium 40 mg 12/14/18 22:00 12/14/18 21:40 Lipitor - PO 40 mg HS [facility] Administration Heparin Sodium (Porcine) 5,000 unit 12/14/18 22:00 12/15/18 13:24 Heparin - SQ Not Given TID [facility] Insulin Aspart 1 vial 12/14/18 16:30 12/15/18 17:44 Novolog Vial Sliding Scale - SQ Not Given ACHS [facility] Protocol Nebivolol 10 mg 12/15/18 10:00 12/15/18 13:23 Bystolic - PO 10 mg DAILY [facility] Administration Nicotine 14 mg 12/15/18 17:00 12/15/18 17:45 Nicoderm Patch - TD 14 mg DAILY [facility] Administration Nitroglycerin 0.4 mg 12/14/18 15:18 Nitrostat - SL ONCE PRN chest pain ASSESSMENT/PLAN: The patient is a 37 year old male with a PMH of DMII, hypertension who presented complaining of chest pain, admitted to r/o ACS. r/o ACS: -the patient presented with typical chest pain, HEART score 4, -no acute EKG changes, NSR, no magdalene/std and normal troponin -consulted Cardiology, had positive stress test today, will be transfered to [facility] for cardiac catheterization -trponins normal -cont Bystolic and Lipitor, no AC recommended by Cardiology -NTG sl as needed -ECHO reviewed Neck pain: -the patient is still complaining of neck pain and numbness in upper extremities -x ray normal DM: -ISS ACHS -BGM ACSH -Hg A1c 7.6 -hold home medication HTN: -cont Bystolic PO -monitor Nicotine dependance: -nicotine gum, counseling F/E/N: no/no changes/NPO Disposition: telemetry monitoring, waiting for transfer to [facility] Problem List - Problems (1) Chest pain Code(s): R07.9 - CHEST PAIN, UNSPECIFIED Qualifiers: Chest pain type: unspecified Qualified Code(s): R07.9 - Chest pain, unspecified (2) Hypertension Code(s): I10 - ESSENTIAL (PRIMARY) HYPERTENSION (3) Diabetes Code(s): E11.9 - TYPE 2 DIABETES MELLITUS WITHOUT COMPLICATIONS Visit type - Emergency Visit Emergency Visit: Yes ED Registration Date: 12/14/18 Care time: The patient presented to the Emergency Department on the above date and was hospitalized for further evaluation of their emergent condition. - New Patient This patient is new to me today: No - Critical Care Critical Care patient: No - Discharge Referral Referred to [facility] Med P.C.: No
[2018-12-15] MEDS: ATORVASTATIN CA 40 MG TABLET (FP) PO SCH (22:10)
[2018-12-16] MEDS: INSULIN SLIDING SCALE (NOVOLOG) 1 VIAL SQ SCH (06:28)
[2018-12-16] MEDS: HEPARIN NA (PORCINE) 5,000 UNITS/ML 1ML VIAL SQ SCH (06:29)
[2018-12-16 07:44] VITALS: BP 119/75; PULSE 62; TEMP 98.4
--- NOTE | 2018-12-16 10:07 | DS ---
Physical Exam: SUBJECTIVE: Patient seen and examined, felling numbness of left arm today and had mild chest pain this morning. OBJECTIVE: Vital Signs Period Temp Pulse Resp BP Sys/Ronquillo Pulse Ox Last 24 Hr 97.7 F-98.9 F 62-72 18-20 114-140/59-90 96-98 PHYSICAL EXAM GENERAL: The patient is awake, alert, and fully oriented, in no acute distress. HEAD: Normal with no signs of trauma. EYES: Extraocular movements intact, conjunctiva clear. ENT: Moist mucous membranes. NECK: Trachea midline, full range of motion, supple. LUNGS: Breath sounds equal, clear to auscultation bilaterally. HEART: Regular rate and rhythm, S1, S2 without murmur, rub or gallop. ABDOMEN: Obese, soft, nontender, nondistended, normoactive bowel sounds. EXTREMITIES: 2+ pulses, no edema. NEUROLOGICAL: Normal speech, gait not observed. PSYCH: Normal mood, normal affect. SKIN: Warm, dry, no rashes or lesions noted. LABS Laboratory Results - last 24 hr 12/15/18 12/15/18 12/16/18 17:39 21:01 06:00 POC Glucometer 277 217 179 HOSPITAL COURSE: The patient is a 37 year old male with a PMH of DMII, hypertension who presented complaining of chest pain that started several hours before coming to the hospital. The pain started suddenly, awoke him from sleep, 10/10, located on left side of the chest, radiated to the neck and associated with numbness of left upper extremity, pressure like. The patient states that the pain lasted for few hours. The patient had relieve of his symptoms after he was given NTG in emergency room. The patient had positive stress test 9 months ago in [place] but decided not to undergo further treatment at that time. The patient reports weakness for the past 2-3 weeks that got worse in the past 3 days. he was admitted to telemetry for cardiac monitoring. his ekg, troponins were normal. He was seen by Cardiology and had positive stress test done for inferior ischemia. We also managed his hypertension and diabetes. Recommendation was made to transfer the patient to tertiary care center for cardiac catheterization. Risks and benefits discussed with the patient who agreed to the plan. Date of Admission:12/14/18 Date of Discharge: 12/16/18 Minutes to complete discharge: 35 Discharge Summary Reason For Visit: UNSTABLE ANGINA PECTORIS Current Active Problems Chest pain (Acute) Diabetes (Acute) Hypertension (Acute) Condition: Guarded - Instructions Diet, Activity, Other Instructions: You were admitted to the hospital for chest pain and being transferred to [facility] for cardiac catheterization. Referrals: Martin Gutierrez MD [Staff Physician] - Disposition: TRANSFER ACUTE CARE/OTHER HOSP - Home Medications Comprehensive Discharge Medication List: Ambulatory Orders Nebivolol HCl [Bystolic] 10 mg PO DAILY 12/14/18 Pitavastatin Calcium [Livalo] 2 mg PO DAILY 12/14/18 Sitagliptin Phos/Metformin HCl [Janumet 50-1,000 mg Tablet] 1 each PO DAILY #30 tablet 12/16/18 Problem List - Problems (1) Chest pain Code(s): R07.9 - CHEST PAIN, UNSPECIFIED Qualifiers: Chest pain type: unspecified Qualified Code(s): R07.9 - Chest pain, unspecified (2) Hypertension Code(s): I10 - ESSENTIAL (PRIMARY) HYPERTENSION (3) Diabetes Code(s): E11.9 - TYPE 2 DIABETES MELLITUS WITHOUT COMPLICATIONS This patient is new to me today: No Emergency Visit: Yes ED Registration Date: 12/14/18 Care time: The patient presented to the Emergency Department on the above date and was hospitalized for further evaluation of their emergent condition. Critical Care patient: No - Discharge Referral Referred to [facility] Med P.C.: No
[2018-12-16] MEDS: NICOTINE 14 MG/24 HOURS TOPICAL PATCH TD SCH (10:35)
[2018-12-16] MEDS: ASPIRIN 81 MG CHEWABLE TABLETS PO SCH (10:36)
[2018-12-16] MEDS: NEBIVOLOL 10 MG TABLET (FP) PO SCH (10:36)
--- NOTE | 2018-12-16 11:16 | PN ---
Progress Note (short form) - Note Progress Note: s: no sob palps dizzy; mild cp this AM, resolved Current Medications Generic Name Dose Route Start Last Admin Trade Name Chiquita PRN Reason Stop Dose Admin Acetaminophen 650 mg 12/15/18 16:22 Tylenol - PO Q6H PRN PAIN LEVEL 1-5 Aspirin 81 mg 12/15/18 10:00 12/16/18 10:36 Asa - PO 81 mg DAILY [facility] Administration Atorvastatin Calcium 40 mg 12/14/18 22:00 12/15/18 22:10 Lipitor - PO 40 mg HS [facility] Administration Heparin Sodium (Porcine) 5,000 unit 12/14/18 22:00 12/16/18 06:29 Heparin - SQ Not Given TID [facility] Insulin Aspart 1 vial 12/14/18 16:30 12/16/18 06:28 Novolog Vial Sliding Scale - SQ Not Given ACHS [facility] Protocol Nebivolol 10 mg 12/15/18 10:00 12/16/18 10:36 Bystolic - PO 10 mg DAILY [facility] Administration Nicotine 14 mg 12/15/18 17:00 12/16/18 10:35 Nicoderm Patch - TD 14 mg DAILY [facility] Administration Nitroglycerin 0.4 mg 12/14/18 15:18 Nitrostat - SL ONCE PRN chest pain o: Vital Signs Period Temp Pulse Resp BP Sys/Ronquillo Pulse Ox Last 24 Hr 97.7 F-98.9 F 62-72 18-20 114-140/59-90 96-98 nad no jvd rrr s1s2 no mrg cta bl nl eff aao3 no le e/c/c abd nt nd pos bs no jaundice diaphoresis Laboratory Last Values WBC 8.1 K/mm3 (4.0-10.0) 12/15/18 05:30 RBC 4.72 M/mm3 (4.00-5.60) 12/15/18 05:30 Hgb 14.7 GM/dL (11.7-16.9) 12/15/18 05:30 Hct 42.7 % (35.4-49) 12/15/18 05:30 MCV 90.4 fl (80-96) 12/15/18 05:30 MCH 31.2 pg (25.7-33.7) 12/15/18 05:30 MCHC 34.5 g/dl (32.0-35.9) 12/15/18 05:30 RDW 13.0 % (11.9-15.9) 12/15/18 05:30 Plt Count 186 K/MM3 (134-434) 12/15/18 05:30 MPV 8.8 fl (7.5-11.1) 12/15/18 05:30 Absolute Neuts (auto) 3.1 K/mm3 (1.5-8.0) 12/15/18 05:30 Neutrophils % 38.3 % (42.8-82.8) L 12/15/18 05:30 Lymphocytes % 49.8 % (8-40) H 12/15/18 05:30 Monocytes % 7.7 % (3.8-10.2) 12/15/18 05:30 Eosinophils % 3.4 % (0-4.5) 12/15/18 05:30 Basophils % 0.8 % (0-2.0) 12/15/18 05:30 Nucleated RBC % 0 % (0-0) 12/15/18 05:30 PT with INR 11.90 SEC (9.7-13.0) 12/15/18 05:30 INR 1.01 (0.83-1.09) 12/15/18 05:30 PTT (Actin FS) 34.3 SECONDS (25.2-36.5) 12/15/18 05:30 Sodium 136 mmol/L (136-145) 12/15/18 05:30 Potassium 4.0 mmol/L (3.5-5.1) 12/15/18 05:30 Chloride 102 mmol/L (98-107) 12/15/18 05:30 Carbon Dioxide 27 mmol/L (21-32) 12/15/18 05:30 Anion Gap 6 MMOL/L (8-16) L 12/15/18 05:30 BUN 15 mg/dL (7-18) 12/15/18 05:30 Creatinine 0.6 mg/dL (0.55-1.3) 12/15/18 05:30 Creat Clearance w eGFR 151.60 (>60) 12/15/18 05:30 POC Glucometer 179 UNITS (80-120) 12/16/18 06:00 Random Glucose 206 mg/dL (74-106) H 12/15/18 05:30 Hemoglobin A1c % 7.6 % (4.2-6.3) H 12/15/18 05:30 Calcium 8.8 mg/dL (8.5-10.1) 12/15/18 05:30 Phosphorus 3.5 mg/dL (2.5-4.9) 12/15/18 05:30 Magnesium 2.1 mg/dL (1.8-2.4) 12/15/18 05:30 Total Bilirubin 0.2 mg/dL (0.2-1) 12/15/18 05:30 AST 21 U/L (15-37) 12/15/18 05:30 ALT 42 U/L (13-61) 12/15/18 05:30 Alkaline Phosphatase 95 U/L (45-117) 12/15/18 05:30 Creatine Kinase 70 U/L (26-308) 12/14/18 08:55 CK-MB (CK-2) < 1.0 ng/mL (0.5-3.6) 12/14/18 16:59 Troponin I < 0.02 ng/ml (0.00-0.05) 12/14/18 19:30 B-Natriuretic Peptide 19.4 pg/ml (5-125) 12/14/18 08:55 Total Protein 7.3 g/dl (6.4-8.2) 12/15/18 05:30 Albumin 3.7 g/dl (3.4-5.0) 12/15/18 05:30 Triglycerides 656 mg/dL (0-150) H 12/15/18 05:30 Cholesterol 170 mg/dL (50-200) 12/15/18 05:30 Total LDL Cholesterol 100 mg/dL (5-100) 12/15/18 05:30 HDL Cholesterol 19 mg/dL (40-60) L 12/15/18 05:30 TSH 1.37 uIU/ml (0.358-3.74) 12/15/18 05:30 ecg: sr nl intervals no ischemic changes cxr: clear lungs tele: sr mibi 11/2018: mild inferior ischemia echo 11/2018: nl lv/rv, no sig valve path a/p: 37 m hx htn, hld, dm, smoking, here with cp. cp: -some typical features and pt has cad risk factors -trops negative -echo benign -mibi with inferior ischemia. given his sxs, risk factors, and abnl mibi, will send for cath today. -cont asa htn: -cont home bystolic hld: -cont home statin tob use: -smoking cessation discussed
--- NOTE | 2018-12-16 13:39 | PN ---
Teaching Attending Note Name of Resident: Sigrid Walters ATTENDING PHYSICIAN STATEMENT I saw and evaluated the patient. I reviewed the resident's note and discussed the case with the resident. I agree with the resident's findings and plan as documented with exceptions below. SUBJECTIVE: Patient seen and examined. no complaints. OBJECTIVE: Vital Signs Period Temp Pulse Resp BP Sys/Ronquillo Pulse Ox Last 24 Hr 97.7 F-98.9 F 62-72 18-20 114-140/59-90 96-98 Intake & Output 12/13/18 12/14/18 12/15/18 12/16/18 23:59 23:59 23:59 23:59 Intake Total 980 450 Balance 980 450 Weight 228 lb 8 oz General: sitting in bed in no acute distress Chest: CTAB, no rales or wheezing Abdomen:Soft, obese, NT Extremities: no edema neck: soft, supple, no JVD Home Medications Medication Instructions Recorded Nebivolol HCl [Bystolic] 10 mg PO DAILY 12/14/18 Pitavastatin Calcium [Livalo] 2 mg PO DAILY 12/14/18 Aspirin [ASA -] 81 mg PO DAILY tab.chew 12/16/18 Atorvastatin Ca [Lipitor] 40 mg PO HS tablet 12/16/18 Nicotine Patch [Nicoderm Patch -] 14 mg TD DAILY patch 12/16/18 Nitroglycerin Sublingual 0.4 mg SL ONCE PRN tab 12/16/18 [Nitrostat -] Sitagliptin Phos/Metformin HCl 1 each PO DAILY #30 tablet 12/16/18 [Janumet 50-1,000 mg Tablet] Laboratory Results - last 24 hr 12/15/18 12/15/18 12/16/18 17:39 21:01 06:00 POC Glucometer 277 217 179 ASSESSMENT AND PLAN: 37 yom with PMHx of HTN, NIDDM, nicotine dependence, recently reported positive stress test in [place] admitted with chest pain -Chest pain -HTN -NIDDM -Nicotine dependence Plan: ACS ruled out, no events on telemetry Positive stress test. Cardiology input noted. Plan for transfer for cardiac cath today Continue ASA/statin/beta valorie. ISS, DIspo transfer to [facility] today. Discussed with patient, all questions answered.
== END 2018-12-16 11:17 | disposition short-term general hospital (02) | DRG 198 ==
LOC: JER 07:39 → JERBED 11:42 → J4W 20:11
PROVIDERS: ADMIT Internal Medicine; ATTEND Hospitalist
DX: I20.0 Unstable angina (principal); I10 Essential (primary) hypertension; E11.9 Type 2 diabetes mellitus without complications; E78.5 Hyperlipidemia, unspecified; R07.89 Other chest pain; F17.210 Nicotine dependence, cigarettes, uncomplicated; E66.9 Obesity, unspecified; Z68.36 Body mass index [BMI] 36.0-36.9, adult
CPT/HCPCS: 36415; 71045-TC-FY; 72050-TC-FY; 78452-TC; 80053; 80061; 82550; 82553; 82947; 82962; 83036; 83721; 83735; 83880; 84100; 84443; 84484; 85025; 85610; 85730; 93005; 93010; 93017; 93306-TC; 99284-25; A9502; J1644; J2785

== ENCOUNTER 2023-04-16 22:13 | Observation (INO) | payer OTHER ==
[2023-04-16 23:24] LABS: INR 1.03 (0.83-1.09); PROTHROMBIN TIME (PATIENT) 11.9 SEC (9.7-13.0)
[2023-04-16 23:26] LABS: ACTIVATED PTT 32.7 SECONDS (25.2-36.5); BASO % 0.7 % (0-2.0); HEMATOCRIT 45.8 % (35.4-49); HEMOGLOBIN 15.9 GM/dL (11.7-16.9); LYMPH % 42.4 % (8-40); MCH 31.5 pg (25.7-33.7); MCHC 34.8 g/dl (32.0-35.9); MEAN CELL VOLUME 90.5 fl (80-96); MEAN PLT VOLUME 8.3 fl (7.5-11.1); MONO % 6.2 % (3.8-10.2); NEUT % 46.7 % (42.8-82.8); PLATELET COUNT 174 10^3/uL (134-434); RBC 5.06 M/mm3 (4.00-5.60); RDW 13.5 % (11.9-15.9); WHITE BLOOD COUNT 8.4 K/mm3 (4.0-10.0)
[2023-04-16 23:48] LABS: POTASSIUM 3.8 mmol/L (3.5-5.1)
[2023-04-16 23:49] LABS: CALCIUM 8.4 mg/dL (8.5-10.1)
[2023-04-16 23:50] LABS: ALBUMIN 3.7 g/dl (3.4-5.0); BLOOD UREA NITROGEN 16.8 mg/dL (7-18)
[2023-04-16 23:53] LABS: CREATININE 0.9 mg/dL (0.55-1.3)
[2023-04-16 23:55] LABS: BILIRUBIN,TOTAL 0.3 mg/dL (0.2-1)
[2023-04-17] MEDS ORDERED: KETOROLAC TROMETHAMINE 15 MG/ML VIAL IM ONE (03:01)
[2023-04-17] MEDS ORDERED: MAG HYDROX/AL HYDROX/SIMETH 30 ML UNIT-DOSE CUP PO ONE (03:06)
[2023-04-17] MEDS ORDERED: FAMOTIDINE 20 MG/50 ML IVPB 20 MG/50 ML MG IVPB ONE ×2 (03:06→03:13)
[2023-04-17] MEDS ORDERED: KETOROLAC TROMETHAMINE 15 MG/ML VIAL IVPUSH ONE (03:08)
[2023-04-17] MEDS ORDERED: MAG HYDROX/AL HYDROX/SIMETH 30 ML UNIT-DOSE CUP ONE (03:12)
[2023-04-17] MEDS ORDERED: KETOROLAC TROMETHAMINE 15 MG/ML VIAL ONE (03:13)
[2023-04-17] MEDS ORDERED: ACETAMINOPHEN 325 MG TABLET (FP) PO PRN (03:16)
[2023-04-17] MEDS ORDERED: DOCUSATE SODIUM 100 MG CAPSULE (FP) PO PRN (03:16)
[2023-04-17] MEDS ORDERED: ACETAMINOPHEN 1000 MG/100 ML BAG IVPB PRN (03:19)
[2023-04-17 04:10] LABS: MAGNESIUM 1.9 mg/dL (1.8-2.4)
[2023-04-17] MEDS ORDERED: MECLIZINE HCL 12.5 MG TABLET PO PRN (04:52)
[2023-04-17 05:38] LABS: CHLORIDE 109 mmol/L (98-107); SODIUM 143 mmol/L (136-145)
[2023-04-17 05:41] LABS: ANION GAP 8 MMOL/L (8-16); BLOOD UREA NITROGEN 20.7 mg/dL (7-18); CALCIUM 8.8 mg/dL (8.5-10.1); CO2 25 mmol/L (21-32); GLUCOSE,RANDOM 207 mg/dL (74-106)
[2023-04-17 05:45] LABS: CREATININE 0.7 mg/dL (0.55-1.3)
[2023-04-17 06:46] LABS: BASO % 0.8 % (0-2.0); EOS % 3.5 % (0-4.5); HEMATOCRIT 46.6 % (35.4-49); HEMOGLOBIN 15.9 GM/dL (11.7-16.9); LYMPH % 48.9 % (8-40); MCH 31.1 pg (25.7-33.7); MCHC 34.2 g/dl (32.0-35.9); MEAN CELL VOLUME 90.9 fl (80-96); MEAN PLT VOLUME 8.4 fl (7.5-11.1); MONO % 6.6 % (3.8-10.2); NEUT % 40.2 % (42.8-82.8); PLATELET COUNT 170 10^3/uL (134-434); RBC 5.12 M/mm3 (4.00-5.60); RDW 13.6 % (11.9-15.9); WHITE BLOOD COUNT 8.3 K/mm3 (4.0-10.0)
[2023-04-17] MEDS: INSULIN SLIDING SCALE (NOVOLOG) 1 VIAL SQ SCH ×4 (08:00→22:48)
[2023-04-17 08:59] VITALS: BMI 29.1
[2023-04-17] MEDS ORDERED: REGADENOSON 0.4 MG/5 ML PRE-FILLED SYRINGE IVPUSH ONE ×2 (10:45→12:33)
[2023-04-17] MEDS ORDERED: ISOSORBIDE MONONITRATE 30 MG TAB.SR.24H (FP) PO SCH (22:00)
[2023-04-17] MEDS ORDERED: ATORVASTATIN CA 40 MG TABLET (FP) PO SCH (22:00)
[2023-04-18 01:30] VITALS: RESP 20; TEMP 98.2
[2023-04-18] MEDS ORDERED: ACETAMINOPHEN 325 MG TABLET (FP) PO PRN (03:16)
[2023-04-18] MEDS: INSULIN SLIDING SCALE (NOVOLOG) 1 VIAL SQ SCH (06:22)
[2023-04-18 07:31] VITALS: BP 107/61; PULSE 65
[2023-04-18 07:49] LABS: BASO % 0.3 % (0-2.0); EOS % 3.9 % (0-4.5); HEMOGLOBIN 15.1 GM/dL (11.7-16.9); LYMPH % 47.4 % (8-40); MCH 30.6 pg (25.7-33.7); MCHC 32.8 g/dl (32.0-35.9); MEAN PLT VOLUME 9.1 fl (7.5-11.1); MONO % 8.1 % (3.8-10.2); NEUT % 40.3 % (42.8-82.8); PLATELET COUNT 168 10^3/uL (134-434); RBC 4.95 M/mm3 (4.00-5.60); RDW 13.4 % (11.9-15.9); WHITE BLOOD COUNT 7.9 K/mm3 (4.0-10.0)
[2023-04-18 07:54] LABS: POTASSIUM 4.1 mmol/L (3.5-5.1)
[2023-04-18 07:57] LABS: BLOOD UREA NITROGEN 22.4 mg/dL (7-18); CALCIUM 8.9 mg/dL (8.5-10.1)
[2023-04-18 08:02] LABS: CREATININE 0.6 mg/dL (0.55-1.3)
[2023-04-18 12:10] LABS: HEPATITIS B SURFACE AG CONFIRM CONFIRMED (NONREACTIVE)
== END 2023-04-18 08:43 | disposition home or self-care (01) ==
LOC: JER 22:13 → JERBED 04-17 03:01 → J4W 04-17 08:32
PROVIDERS: ADMIT Internal Medicine; ATTEND Family Medicine
PROC: 3E033GC Introduction of Other Therapeutic Substance into Peripheral Vein, Percutaneous Approach (ICD-10-PCS; principal; 2023-04-17)
PROC: 3E013VG Introduction of Insulin into Subcutaneous Tissue, Percutaneous Approach (ICD-10-PCS; 2023-04-17)
PROC: 3E0333Z Introduction of Anti-inflammatory into Peripheral Vein, Percutaneous Approach (ICD-10-PCS; 2023-04-17)
DX: I25.10 Atherosclerotic heart disease of native coronary artery without angina pectoris (principal); I10 Essential (primary) hypertension; E78.5 Hyperlipidemia, unspecified; E11.9 Type 2 diabetes mellitus without complications; Z95.5 Presence of coronary angioplasty implant and graft; F17.200 Nicotine dependence, unspecified, uncomplicated
CPT/HCPCS: 0241U-QW; 36415; 70450-TC; 71045-TC-FY; 71275-TC; 78452-TC; 80048; 80053; 82962; 83735; 83880; 84484; 85025; 85610; 85730; 86140; 86705; 86707; 86708; 87340; 87350; 87517; 87522; 93005; 93010; 93017; 93306-TC; 96365; 96372; 96375; 99285-25; A9502; G0378; J2785; Q9967